=== PATIENT | male | born 1955 | race Hispanic/Latino ===

== ENCOUNTER 2017-09-26 07:48 | Day surgery (SDC) | payer MEDICARE, OTHER ==
[2017-09-20 13:39] VITALS: BMI 36.6
[2017-09-26] MEDS ORDERED: Propofol 10 mg/ml Inj (20 ML) ONE (09:16)
[2017-09-26] MEDS ORDERED: Lidocaine 2% Inj (20ml) ONE (09:17)
[2017-09-26] MEDS ORDERED: Sodium Chloride 0.9% 1,000 ML IV SCH (10:30)
[2017-09-26 10:36] VITALS: O2SAT 95
[2017-09-26 11:26] VITALS: BP 116/72; PULSE 75; RESP 18; TEMP 98.4
== END 2017-09-26 12:20 | disposition home or self-care (01) ==
LOC: ENDO 07:48
PROVIDERS: ATTEND Internal Medicine
DX: D12.4 Benign neoplasm of descending colon (principal); K57.30 Diverticulosis of large intestine without perforation or abscess without bleeding; K22.70 Barrett's esophagus without dysplasia; K29.50 Unspecified chronic gastritis without bleeding; K64.8 Other hemorrhoids; E11.9 Type 2 diabetes mellitus without complications; Z80.0 Family history of malignant neoplasm of digestive organs; K21.9 Gastro-esophageal reflux disease without esophagitis
CPT/HCPCS: 43239; 45380; 88305; 88312; 88342; J2704; J3010; J7040 ×2

== ENCOUNTER 2018-10-16 12:22 | Outpatient (CLI) | payer MEDICARE, OTHER | END 2018-10-16 12:23 | disposition home or self-care (01) | LOC: RAD 12:22 ==

== ENCOUNTER 2019-01-18 13:32 | Outpatient (CLI) | payer MEDICARE, OTHER | END 2019-01-18 13:33 | disposition home or self-care (01) | LOC: RAD 13:32 ==

== ENCOUNTER 2019-01-28 10:31 | Outpatient (CLI) | payer MEDICARE, OTHER | END 2019-01-28 10:32 | disposition home or self-care (01) | LOC: RAD 10:31 ==